=== PATIENT | male | born 1970 | race Caucasian/White ===

== ENCOUNTER 2019-08-07 19:19 | Emergency (ER) | payer MEDICARE, SELFPAY ==
[2019-08-07 19:20] VITALS: BP 127/76; PULSE 100; RESP 15; TEMP 36.4; O2SAT 100; BMI 27.9
--- NOTE | 2019-08-07 19:31 | RAD_ITS ---
STUDY: X-RAY - PELVIS REASON FOR EXAM: Male, 49 years old. WHILE LIFTING SOME HEAVY OBJECTS TODAY PT''S RIGHT KNEE GAVE OUT AND PT FELL BACKWARD ONTO CONCRETE. C/O LOWER BACK/TAILBONE PAIN TECHNIQUE: One view of the pelvis was obtained. COMPARISON: None. FINDINGS: There is a non-specific bowel gas pattern. Normal visualized soft tissue structures. Normal bilateral iliac wings, sacroiliac joints and visualized sacrum. Normal visualized bilateral superior and inferior pubic rami. Normal pubic symphysis. Normal ischial tuberosities. Normal visualized right femoral head. Normal right acetabulum. Normal right hip joint. Normal visualized left femoral head. Normal left acetabulum. Normal left hip joint. RAD/Pelvis 1 or 2 Views IMPRESSION: Normal x-ray examination of the pelvis. Electronically Signed: Hadley Grimes MD at 20:22 EDT , Service support ,
--- NOTE | 2019-08-07 19:36 | ED.VIS.GEN ---
History of Present Illness Chief Complaint: Other, Pain/Inj Informant: Patient Onset: Today Narrative: The patient states that he has a partial knee replacement and sometimes his knee gives out. Today he lifted some boxes his knee gave out and he fell down into a sitting position due to the momentum of the boxes. He states that he got extreme pain in his lower mid back that radiated down his legs. He states that it continues to hurt significantly. He denies any bowel or bladder dysfunction. No loss of sensation or muscle. No prior back injuries or/surgeries. Past Medical History - Allergies and Home Meds Allergies/Adverse Reactions: Allergies No Known Allergies Allergy (Verified 08/07/19 19:23) Primary Care Physician: Mike Kimbrough MD [Primary Care Provider] - Review of Systems General: Denies: Chills, Fever, Sweats Eyes: Denies: Visual changes - bilaterally, Diplopia ENT: Denies: Rhinorrhea, Sore throat Cardiovascular: Denies: Chest pain, Palpitations Respiratory: Denies: Dyspnea, Cough, Dyspnea on exertion Gastrointestinal: Denies: Abdominal pain, Nausea, Vomiting, Diarrhea, Melena, Hematochezia Genitourinary: Denies: Dysuria, Hematuria, Frequency Musculoskeletal: Reports: Back pain. Denies: Extremity Pain Skin: Denies: Rash, Wounds Neurological: Denies: Headache, Weakness, Parasthesia, Numbness Physical Exam Vital Signs/Narrative: Vital Signs Temp Pulse Resp BP Pulse Ox 08/07/19 19:20 97.6 F L 100 15 127/76 H 100 General: Well nourished, Well developed, No Acute Distress Head: Normocephalic, Atraumatic Eyes: Perrl, EOMI ENT: Moist mucous membranes, No rhinorrhea Neck: Supple, Nontender Cardiovascular: Regular rate, Regular rhythm, No murmurs Respiratory: No distress, CTA bilaterally, Chest nontender Abdomen: Soft, Nontender, Nondistended, Normal bowel sounds Back: - - Patient is lying his left side down. He has tenderness in the midline of the mid lumbar spine and down into the buttock over the initial tuberosities. There are no skin changes to suggest abscess or infection. Extremities: Nontender, No edema Skin: Normal color, No rash Neurological: Alert, Oriented x3, Cranial nerves II-XII grossly intact, Normal Strength, Normal Sensation, - - Patient has an antalgic gait. Negative for: Normal Gait Psychological: Normal affect, Normal Mood Diagnostic/Tx/Re-eval Clinical Impression(s) from Imaging Studies Pelvis X-Ray 08/07/19 19:31 IMPRESSION: Normal x-ray examination of the pelvis. Electronically Signed: Hadley Grimes MD at 20:22 EDT , Service support , Lumbar Spine X-Ray 08/07/19 19:55 IMPRESSION: Normal x-ray examination of the lumbar spine. Electronically Signed: Hadley Grimes MD at 20:21 EDT , Service support , - Medical Decision Making X-rays of the lumbar spine and pelvis were negative for fractures. We will treat this as a back sprain. Patient received a dose of Lockwood and Norflex here in the department. I will write for Lockwood and Flexeril at home. He is to rest ice or heat. Follow-up with primary care ED Disposition - Plan for ED Patient: Disposition: Home or Assisted Living Diagnosis: Lumbar back sprain, Sacral contusion Instructions: ED LUMBAR SPRAIN/STRAIN, ED COCCYX CONTUSION Prescriptions: cycloBENZAPRine HCl [Flexeril] 10 mg PO TID PRN #20 tab PRN Reason: Muscle Spasm Prescription Printed Hydrocodone Bitart/Apap 5-325 [Lockwood 5MG-325MG] 1 tab PO Q6H PRN PRN 3 Days #12 tab PRN Reason: Pain Prescription Printed Referrals: Mike Kimbrough MD [Primary Care Provider] - 1 Week if not improving
[2019-08-07] MEDS: Orphenadrine 60 MG/2 ML Ampul IM (19:51)
--- NOTE | 2019-08-07 19:55 | RAD_ITS ---
STUDY: X-RAY - LUMBAR SPINE REASON FOR EXAM: Male, 49 years old. WHILE LIFTING SOME HEAVY OBJECTS TODAY PT''S RIGHT KNEE GAVE OUT AND PT FELL BACKWARD ONTO CONCRETE. C/O LOWER BACK/TAILBONE PAIN TECHNIQUE: 3 view(s) of the lumbar spine were obtained. COMPARISON: None FINDINGS: Normal lumbar lordosis. There is no substantial scoliosis. There is a normal alignment of the vertebrae. Normal vertebral bodies and endplates. Normal disc space heights. The soft tissue structures are unremarkable. RAD/Lumbar Spine 2 or 3 Views IMPRESSION: Normal x-ray examination of the lumbar spine. Electronically Signed: Hadley Grimes MD at 20:21 EDT , Service support ,
[2019-08-07] MEDS: HYDROcodone Bitartrate/Apap 5/325 Tablet PO (20:08)
[2019-08-07 21:04] VITALS: BP 132/90; PULSE 83; RESP 18; O2SAT 100
== END 2019-08-07 21:07 | disposition home or self-care (01) ==
LOC: ED 20:58
PROVIDERS: Emergency Provider Emergency Medicine; PCP Family Medicine
DX: M54.5 Low back pain (principal); S33.5XXA Sprain of ligaments of lumbar spine, initial encounter; S30.0XXA Contusion of lower back and pelvis, initial encounter; W19.XXXA Unspecified fall, initial encounter
CPT/HCPCS: 72100; 72170; 96372; 99283

== ENCOUNTER 2019-09-24 14:43 | Emergency (ER) | payer MEDICARE, OTHER, SELFPAY ==
[2019-09-24 14:45] VITALS: BP 141/90; PULSE 85; RESP 16; TEMP 36.9; O2SAT 100; BMI 28.7
--- NOTE | 2019-09-24 15:00 | CT_ITS ---
STUDY: CT CERVICAL SPINE WITHOUT CONTRAST REASON FOR EXAM: Male, 49 years old. FELT POP IN NECK YESTERDAY/NOW PAINFUL down left arm. Also CUELLAR RADIATION DOSAGE (If Supplied By Facility): CTDIvol = ( 26.26 ) mGy, DLP = ( 511.85 ) mGycm TECHNIQUE: High resolution transaxial imaging was performed without contrast material. Sagittal and coronal images were reconstructed. Individualized dose optimization techniques were used for this CT. COMPARISON: None FINDINGS: Normal craniovertebral junction. Normal anterior atlantoaxial articulation. Normal odontoid process. Normal cervical lordosis. Normal vertebral bodies and posterior osseous elements. No demonstrated acute fracture or compression deformity. Normal endplates. Normal disc height and morphology. Normal central canal and intervertebral neuroforamina. Normal visualized soft tissue structures. CT/Spine Cervical without Contras IMPRESSION: Unremarkable unenhanced CT examination of the cervical spine. Electronically Signed: Fran Brock MD at 15:50 EDT , Service support ,
--- NOTE | 2019-09-24 15:01 | ED.VIS.GEN ---
History of Present Illness Chief Complaint: Other, Pain/Inj Informant: Patient Narrative: 49-year-old male with past medical history of hypertension and hypothyroidism and GERD presents with concern for left-sided neck pain. States that he was changing light bulbs in a garage yesterday when he felt a pop in his left neck. Has tingling that goes down his left arm. Denies any engine vision, chest pain, shortness of breath, trauma. Past Medical History - Allergies and Home Meds Allergies/Adverse Reactions: Allergies nickel Allergy (Verified 09/24/19 14:45) Rash ketorolac [From Toradol] Adverse Reaction (Verified 09/24/19 14:45) Pain in joints tramadol Adverse Reaction (Verified 09/24/19 14:45) Pain in joints Primary Care Physician: Sherly Ochoa MD [Primary Care Provider] - Past Medical History: - - HTN, GERD, hypothyroidsim Surgical History: - - right knee and vasectomy Lives: With Family Smoking Status: Current every day smoker Alcohol: None Drugs: None Review of Systems General: Denies: Chills, Fever, Sweats Eyes: Denies: Visual changes - bilaterally, Diplopia ENT: Denies: Rhinorrhea, Sore throat Cardiovascular: Denies: Chest pain, Palpitations Respiratory: Denies: Dyspnea, Cough, Dyspnea on exertion Gastrointestinal: Denies: Abdominal pain, Nausea, Vomiting, Diarrhea, Melena, Hematochezia Genitourinary: Denies: Dysuria, Hematuria, Frequency Musculoskeletal: Reports: - - neck pain . Denies: Back pain, Extremity Pain Skin: Denies: Rash, Wounds Neurological: Reports: Parasthesia. Denies: Headache, Weakness, Numbness Physical Exam Vital Signs/Narrative: Vital Signs Temp Pulse Resp BP Pulse Ox 09/24/19 14:45 98.5 F 85 16 141/90 H 100 Inital Vital Signs reviewed: Yes General: Well nourished, Well developed, No Acute Distress Head: Normocephalic, Atraumatic Eyes: Perrl, EOMI ENT: Moist mucous membranes, No rhinorrhea Neck: Supple, Nontender Cardiovascular: Regular rate, Regular rhythm, No murmurs Respiratory: No distress, CTA bilaterally, Chest nontender Abdomen: Soft, Nontender, Nondistended, Normal bowel sounds Back: Nontender, Normal Inspection Extremities: Nontender, No edema Skin: Normal color, No rash Neurological: Alert, Oriented x3, Cranial nerves II-XII grossly intact, Normal Strength, Normal Sensation Psychological: Normal affect, Normal Mood Diagnostic/Tx/Re-eval Clinical Impression(s) from Imaging Studies Cervical Spine CT 09/24/19 15:00 IMPRESSION: Unremarkable unenhanced CT examination of the cervical spine. Electronically Signed: Fran Brock MD at 15:50 EDT , Service support , - Medical Decision Making Appears well and nontoxic. Vital signs within normal limits. No focal neurologic deficit. Cervical spine CT without contrast is negative. Patient was given Lidoderm patch for his pain. Will be given muscular Kenalog for likely cervical radiculopathy. Patient advised to follow-up with primary care. Patient agreeable and discharged home in stable condition. Impression: 1. Cervical radiculopathy ED Disposition - Plan for ED Patient: Disposition: Home or Assisted Living Instructions: ED CERVICAL RADICULOPATHY Referrals: Sherly Ochoa MD [Primary Care Provider] -
[2019-09-24] MEDS: Triamcinolone Acetonide 40 MG/ML Vial IM (16:06)
[2019-09-24] MEDS: Lidocaine 5% Patch 1 PATCH TOPICAL (16:24)
[2019-09-24 16:25] VITALS: BP 126/84; PULSE 59; RESP 16; O2SAT 97
== END 2019-09-24 16:26 | disposition home or self-care (01) ==
PROVIDERS: Emergency Provider Emergency Medicine; PCP Family Medicine
DX: M54.12 Radiculopathy, cervical region (principal); F17.200 Nicotine dependence, unspecified, uncomplicated
CPT/HCPCS: 72125; 96372; 99283

== ENCOUNTER 2021-12-26 20:29 | Emergency (ER) | payer MEDICARE, OTHER, SELFPAY ==
[2021-12-26 20:29] VITALS: BP 144/85; PULSE 82; RESP 18; TEMP 36.4; O2SAT 100; BMI 26.5
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
--- NOTE | 2021-12-26 22:50 | RAD_ITS ---
STUDY: X-RAY - CERVICAL SPINE REASON FOR EXAM: Male, 51 years old. pain TECHNIQUE: 3 view(s) of the cervical spine were obtained. COMPARISON: None FINDINGS: Normal anterior atlantoaxial articulation. Normal odontoid process. Normal cervical lordosis. Normal vertebral bodies and endplates. Normal disc space heights. Normal visualized intervertebral neuroforamina. The soft tissue structures are unremarkable. There is a new mild compression fracture of T12 that was not present on the study from 03/08/2019. RAD/Cerv Spine 2 or 3 Views IMPRESSION: Normal x-ray examination of the visualized cervical spine. There is a new mild compression fracture of T12 that was not present on the study from 03/08/2019. Electronically Signed: Mustapha Cota MD at 0:25 EDT ,
--- NOTE | 2021-12-26 22:50 | RAD_ITS ---
STUDY: X-RAY - LUMBAR SPINE REASON FOR EXAM: Male, 51 years old. pain TECHNIQUE: 3 view(s) of the lumbar spine were obtained. COMPARISON: None FINDINGS: Normal lumbar lordosis. There is no substantial scoliosis. There is a normal alignment of the vertebrae. Normal vertebral bodies and endplates. Normal disc space heights. The soft tissue structures are unremarkable. RAD/Lumbar Spine 2 or 3 Views IMPRESSION: Normal x-ray examination of the lumbar spine. Electronically Signed: Mustapha Cota MD at 0:21 EDT ,
== END 2021-12-27 00:38 | disposition left against medical advice (07) ==
PROVIDERS: Emergency Provider Emergency Medicine; PCP Family Medicine; Visit Provider Emergency Medicine
DX: S09.90XA Unspecified injury of head, initial encounter (principal); S39.012A Strain of muscle, fascia and tendon of lower back, initial encounter; S13.4XXA Sprain of ligaments of cervical spine, initial encounter; F17.210 Nicotine dependence, cigarettes, uncomplicated; V43.52XA Car driver injured in collision with other type car in traffic accident, initial encounter
CPT/HCPCS: 72040; 72100; 99282